=== PATIENT | female | born 1975 | race Caucasian/White ===

== ENCOUNTER 2020-05-19 19:59 | Emergency (ER) | payer OTHER, SELFPAY ==
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
[2020-05-19 20:03] VITALS: BP 136/84; PULSE 95; RESP 17; TEMP 36.6; O2SAT 100
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
[2020-05-19 22:00] VITALS: BP 124/67; PULSE 73; RESP 16; O2SAT 99
[2020-05-19] MEDS: IBUPROFEN 400 MG TABLET 800 MG PO (22:06)
[2020-05-19 22:21] VITALS: TEMP 36.6
== END 2020-05-19 22:15 | disposition home or self-care (01) ==
PROVIDERS: Emergency Provider Emergency Medicine; PCP Internal Medicine
DX: S96.911A Strain of unspecified muscle and tendon at ankle and foot level, right foot, initial encounter (principal); V43.52XA Car driver injured in collision with other type car in traffic accident, initial encounter
CPT/HCPCS: 70450; 71046; 72125; 73090; 73630; 99284; A9270

== ENCOUNTER 2020-08-22 11:46 | Emergency (ER) | payer OTHER, SELFPAY ==
[2020-08-22 11:55] VITALS: BP 117/55; PULSE 92; RESP 12; TEMP 36.9; O2SAT 100
--- NOTE | 2020-08-22 12:09 | ED.EAR ---
HPI - Ear Problem General Chief complaint: Ear Stated complaint: Ear infection Time Seen by Provider: 08/22/20 11:55 Source: patient and RN notes reviewed Mode of arrival: ambulatory Limitations: no limitations History of Present Illness HPI Narrative: Patient presents today complaining of left ear pain x1 week with nasal congestion. Denies decreased hearing, but does report some ringing and drumming. She has been taking Benadryl and Mucinex without much relief. Currently rates her pain 3/10. Denies rhinorrhea, sore throat, congestion, cough. States she gets similar symptoms every year and typically needs a Z-Odin. Complaint: ear pain Related Data Allergies Allergy/AdvReac Type Severity Reaction Status Date / Time No Known Allergies Allergy Verified 08/22/20 11:56 Review of Systems Review of Systems: Narrative: CONSTITUTIONAL: Denies body aches, fever, chills, or sweats. EYES: Denies visual changes, redness, or discharge. ENT: Denies rhinorrhea, sore throat. + Left ear pain, congestion CARDIOVASCULAR: Denies chest pain, palpitations, or edema. RESPIRATORY: Denies cough or dyspnea. GASTROINTESTINAL: Denies abdominal pain, nausea, vomiting, or diarrhea. GENITOURINARY: Denies dysuria or hematuria. SKIN: Denies rash, itching, or wounds. MUSCULOSKELETAL: Denies back pain, joint pain, or myalgia. NEUROLOGIC: Denies headache, numbness, tingling, or weakness. PSYCH: Denies depression or anxiety. PMFSH Past Medical History Medical History (Updated 08/22/20 @ 12:11 by Quiana Brice, [facility], ) ADD (attention deficit disorder) Family History Family History (Updated 07/11/18 @ 08:31 by DOCTOR UNKNOWN) Mother Patient's mother is in good health Father Patient's father is in good health Social History Social History (Updated 03/01/19 @ 09:11 by Na Chamorro, [facility]) Smoking status: Never smoker Alcohol intake: current Gender identity (if verbalized by the patient): Female Comments At time of signature, I have reviewed and agree with nursing past medical, surgical, social and family history unless otherwise noted. Please see nursing chart for further information. There is no relevant family history pertinent to the presenting complaint Exam Narrative: Exam Narrative: GENERAL: Well-appearing, well-nourished, and in no acute distress. HEAD: Normocephalic, atraumatic. EYES: EOMI. No redness or drainage. Conjunctivae normal. ENT: Mucous membranes pink and moist. Nares clear. No rhinorrhea. Right TM normal. Left TM with mild to moderate amount of clear yellow fluid. No erythema or injection. No purulent material. Throat normal. Uvula midline. NECK: Normal AROM. Supple. No lymphadenopathy. CHEST: No respiratory distress. Clear to auscultation. HEART: Regular rate and rhythm. No murmur appreciated. Normal peripheral pulses. EXTREMITIES: Normal range of motion. No edema. SKIN: Warm, dry, no rash. Capillary refill normal. Normal skin turgor. NEURO: No focal deficits. Alert and oriented x3. Gait steady. PSYCH: Normal affect. No signs of depression or anxiety. Course Vital Signs Vital signs: Vital Signs Temperature 98.4 F 08/22/20 11:55 Pulse Rate 92 08/22/20 11:55 Respiratory Rate 12 08/22/20 11:55 Blood Pressure 117/55 L 08/22/20 11:55 Pulse Oximetry 100 08/22/20 11:55 Temperature 98.4 F 08/22/20 11:55 Pulse Rate 92 08/22/20 11:55 Respiratory Rate 12 08/22/20 11:55 Blood Pressure 117/55 L 08/22/20 11:55 Pulse Oximetry 100 08/22/20 11:55 Reviewed Medical Decision Making Differential Diagnosis Differential Diagnosis: Otitis media, otitis externa, ruptured TM, serous otitis, eustachian tube dysfunction, URI, seasonal allergies Vital Signs Vital Signs: Vital Signs Temperature 98.4 F 08/22/20 11:55 Pulse Rate 92 08/22/20 11:55 Respiratory Rate 12 08/22/20 11:55 Blood Pressure 117/55 L 08/22/20 11:55 Pulse Oximetry 100 08/22/20 11:55
== END 2020-08-22 12:24 | disposition home or self-care (01) ==
PROVIDERS: Emergency Provider Nurse Practitioner; PCP Internal Medicine
DX: H65.02 Acute serous otitis media, left ear (principal)
CPT/HCPCS: 99213; G0463

== ENCOUNTER 2021-04-08 17:05 | Emergency (ER) | payer OTHER, SELFPAY ==
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
[2021-04-08 17:20] VITALS: BP 135/72; PULSE 71; RESP 16; TEMP 36.4; O2SAT 100
--- NOTE | 2021-04-08 17:27 | ECG_ITS ---
Measurements Intervals [place] Rate: 85 P: 50 SD: 153 QRS: 20 QRSD: 75 T: 10 QT: 374 QTc: 446 Interpretive Statements SINUS RHYTHM POSSIBLE LEFT ATRIAL ENLARGEMENT LOW QRS VOLTAGE IN PRECORDIAL LEADS CANNOT RULE OUT SEPTAL INFARCT, AGE INDETERMINATE BORDERLINE T WAVE ABNORMALITY- ANT/INF LEADS BASELINE ARTIFACT- I, III, AVL ABNORMAL ECG Electronically Signed On 04-09-2021 7:39:24 CUSTODIAL WORKER by Jordin Patel D.O.
[2021-04-08 17:39] LABS: Basophils Percent Auto 0.5 % (0.2-1.2); Eosinophils Percent Auto 0.5 % (0-4.4); Hematocrit 42.4 % (37.0-47.0); Hemoglobin 14.9 g/dL (12.0-15.0); Immature Granulocyte Absolute 0.02 K/mm3 (0.00-0.031); Immature Granulocyte Percent A 0.3 % (0-0.5); Mean Corpuscular HGB Conc 35.1 g/dl (32-36); Mean Corpuscular Hemoglobin 32.2 pg (26-34); Mean Corpuscular Volume 91.6 fl (80-100); Mean Platelet Volume 10.4 fl (7.4-10.4); Monocytes Absolute Auto 0.6 K/mm3 (0.1-0.6); Monocytes Percent Auto 7.3 % (2.6-8.5); Neutrophils Absolute Auto 4.4 K/mm3 (1.3-6.7); Neutrophils Percent Auto 57.4 % (45.5-73.1); Platelet Count Result 276 k/mm3 (150-375); Red Blood Count 4.63 M/mm3 (4.2-5.4); Red Cell Distribution Width 11.9 % (11.5-14.5); White Blood Count 7.7 K/mm3 (4.5-10.0)
[2021-04-08 17:48] LABS: Alanine Aminotransferase 17 U/L (4-35); Albumin Level 4.5 g/dL (3.5-5.1); Alkaline Phosphatase 60 U/L (38-126); Anion Gap 8 mmol/L (8-16); Aspartate Amino Transferase 24 U/L (14-36); Bilirubin,Total 0.3 mg/dL (0.2-1.3); Blood Urea Nitrogen 21 mg/dL (7-17); Calcium 9.4 mg/dL (8.4-10.2); Carbon Dioxide 30 mmol/L (22-30); Chloride 99 mmol/L (98-107); Estimated CRCL calculation 76 ml/min; Estimated Glomerular Filt Rate > 60; Glucose 102 mg/dL (65-110); Lipase 126 U/L (23-300); Potassium 3.7 mmol/L (3.4-5.0); Sodium 137 mmol/L (137-145)
[2021-04-08 17:51] LABS: INR 0.9; Prothrombin Time 12.1 Seconds (11.1-14.7)
[2021-04-08 17:52] LABS: Partial Thromboplastin Time 26.1 SECONDS (22.3-36.8)
[2021-04-08 18:00] LABS: Troponin I < 0.012 ng/mL (0.000-0.034)
[2021-04-08 19:49] VITALS: BP 134/93; PULSE 99; RESP 18; TEMP 36.9; O2SAT 99
--- NOTE | 2021-04-08 21:07 | PC.NURSE ---
Pt exits ED prior to seeing provider. No sign of any kind of distress.
== END 2021-04-09 00:59 | disposition left against medical advice (07) ==
PROVIDERS: Emergency Provider General Practice; PCP Internal Medicine
DX: M79.602 Pain in left arm (principal)
CPT/HCPCS: 36415; 71046; 80053; 83690; 84484; 85025; 85610; 85730; 93005; 99199

== ENCOUNTER 2022-09-16 08:37 | Outpatient (CLI) | payer OTHER, SELFPAY ==
[2022-09-16 18:44] LABS: Alanine Aminotransferase 17 U/L (6-35); Albumin Level 4.2 g/dL (3.5-5.1); Alkaline Phosphatase 61 U/L (38-126); Anion Gap 4 mmol/L (8-16); Aspartate Amino Transferase 31 U/L (14-36); Bilirubin,Total 0.5 mg/dL (0.2-1.3); Blood Urea Nitrogen 13 mg/dL (7-17); Calcium 9.4 mg/dL (8.4-10.2); Carbon Dioxide 32 mmol/L (22-30); Chloride 103 mmol/L (98-107); Cholesterol 184 mg/dL (0-200); Estimated Glomerular Filt Rate > 60; Glucose 98 mg/dL (65-110); HDL Direct 68 mg/dL; Potassium 4.6 mmol/L (3.4-5.0); Sodium 139 mmol/L (137-145); Triglycerides 58 mg/dL (<150)
[2022-09-16 18:56] LABS: LDL Cholesterol Direct 93 mg/dL
[2022-09-16 19:04] LABS: Vitamin D 25 Hydroxy 21.6 ng/mL
[2022-09-16 19:24] LABS: Basophils Absolute Auto 0.1 K/mm3 (0.0-0.1); Basophils Percent Auto 0.9 % (0.2-1.2); Eosinophils Percent Auto 0.7 % (0-4.4); Hematocrit 44.1 % (37.0-47.0); Hemoglobin 15.1 g/dL (12.0-15.0); Immature Granulocyte Absolute 0.01 K/mm3 (0.00-0.031); Immature Granulocyte Percent A 0.2 % (0-0.5); Lymphocytes Absolute Auto 2.11 K/mm3 (0.9-3.2); Lymphocytes Percent Auto 38.9 % (18.3-44.2); Mean Corpuscular HGB Conc 34.2 g/dl (32-36); Mean Corpuscular Hemoglobin 31.9 pg (26-34); Mean Platelet Volume 10.5 fl (7.4-10.4); Monocytes Absolute Auto 0.5 K/mm3 (0.1-0.6); Monocytes Percent Auto 8.3 % (2.6-8.5); Neutrophils Absolute Auto 2.8 K/mm3 (1.3-6.7); Platelet Count Result 332 k/mm3 (150-375); Red Blood Count 4.74 M/mm3 (4.2-5.4); Red Cell Distribution Width 11.9 % (11.5-14.5); White Blood Count 5.4 K/mm3 (4.5-10.0)
== END 2022-09-16 08:38 | disposition home or self-care (01) ==
LOC: ANHGOSHLAB 08:38
PROVIDERS: PCP Internal Medicine; Visit Provider Nurse Practitioner
DX: E55.9 Vitamin D deficiency, unspecified (principal); Z13.228 Encounter for screening for other metabolic disorders; Z13.220 Encounter for screening for lipoid disorders
CPT/HCPCS: 36415; 80053; 80061; 82306; 85025

== ENCOUNTER 2023-04-07 11:00 | Outpatient (CLI) | payer OTHER, SELFPAY ==
[2023-04-07 12:07] LABS: Appearance Urine Cloudy (Clear); Bacteria Urine None Seen /hpf; Bilirubin Urine Negative (Negative); Blood Urine 2+ (Negative); Color Urine Yellow (Yellow); Glucose Urine UA Negative (Negative); Ketones Urine Trace mg/dL (Negative); Leukocyte Esterase Ur 2+ LEU/UL (Negative); Nitrate Urine Negative (Negative); Non Pathogenic Casts 0-2; Protein Urine 1+ mg/dL (Negative); RBC Urine 51-100 /hpf (0-2); Specific Grav Ur 1.034 (1.001-1.035); Squamous Epithelial Cell Urine Occasional /hpf (Few); WBC Urine 51-100 /hpf
[2023-04-07 12:10] LABS: Add Urine Microscopic? YES
== END 2023-04-07 11:01 | disposition home or self-care (01) ==
LOC: ANHGOSHLAB 11:02
PROVIDERS: PCP Internal Medicine; Visit Provider Nurse Practitioner
DX: R30.0 Dysuria (principal)
CPT/HCPCS: 81001; 87077; 87086; 87186

== ENCOUNTER 2023-12-30 11:04 | Outpatient (CLI) | payer OTHER, SELFPAY ==
[2023-12-30 15:30] LABS: Basophils Percent Auto 0.5 % (0.2-1.2); Eosinophils Percent Auto 0.7 % (0-4.4); Hematocrit 46.3 % (37.0-47.0); Hemoglobin 15.4 g/dL (12.0-15.0); Immature Granulocyte Absolute 0.01 K/mm3 (0.00-0.031); Immature Granulocyte Percent A 0.2 % (0-0.5); Lymphocytes Absolute Auto 2.58 K/mm3 (0.9-3.2); Lymphocytes Percent Auto 44.3 % (18.3-44.2); Mean Corpuscular HGB Conc 33.3 g/dl (32-36); Mean Corpuscular Hemoglobin 31.2 pg (26-34); Mean Corpuscular Volume 93.7 fl (80-100); Mean Platelet Volume 10.8 fl (7.4-10.4); Monocytes Absolute Auto 0.5 K/mm3 (0.1-0.6); Monocytes Percent Auto 8.1 % (2.6-8.5); Neutrophils Absolute Auto 2.7 K/mm3 (1.3-6.7); Neutrophils Percent Auto 46.2 % (45.5-73.1); Platelet Count Result 323 k/mm3 (150-375); Red Blood Count 4.94 M/mm3 (4.2-5.4); Red Cell Distribution Width 11.9 % (11.5-14.5); White Blood Count 5.8 K/mm3 (4.5-10.0)
[2023-12-30 15:59] LABS: Alanine Aminotransferase 16 U/L (6-35); Albumin Level 4.3 g/dL (3.5-5.1); Alkaline Phosphatase 61 U/L (38-126); Anion Gap 9 mmol/L (4-12); Aspartate Amino Transferase 85 U/L (14-36); Bilirubin,Total 0.6 mg/dL (0.2-1.3); Blood Urea Nitrogen 13 mg/dL (7-17); Calcium 9.4 mg/dL (8.4-10.2); Carbon Dioxide 29 mmol/L (22-30); Chloride 100 mmol/L (98-107); Cholesterol 190 mg/dL (0-200); Estimated Glomerular Filt Rate > 60; Glucose 79 mg/dL (65-110); HDL Direct 65 mg/dL; Potassium 4.2 mmol/L (3.4-5.0); Sodium 138 mmol/L (137-145); Triglycerides 55 mg/dL (<150)
[2023-12-30 16:07] LABS: Vitamin D 25 Hydroxy 36.6 ng/mL
[2023-12-30 16:10] LABS: LDL Cholesterol Direct 88 mg/dL
[2024-01-01 16:03] LABS: Amphetamines POSITIVE ng/mL (<500); Barbiturates NEGATIVE ng/mL (<300); Benzodiazepines NEGATIVE ng/mL (<100); Cocaine Metabolite NEGATIVE ng/mL (<150); Marijuana Metabolite NEGATIVE ng/mL (<20); Methadone Metabolite NEGATIVE ng/mL (<100); Opiates NEGATIVE ng/mL (<100); Oxidant NEGATIVE mcg/mL (<200); PCP NEGATIVE ng/mL (<25); pH 7.4 (4.5-9.0)
== END 2023-12-30 11:05 | disposition home or self-care (01) ==
PROVIDERS: PCP Internal Medicine; Visit Provider Nurse Practitioner
DX: E55.9 Vitamin D deficiency, unspecified (principal); Z13.220 Encounter for screening for lipoid disorders; Z13.228 Encounter for screening for other metabolic disorders; Z79.899 Other long term (current) drug therapy
CPT/HCPCS: 36415; 80053; 80061; 80307; 82306; 85025

== ENCOUNTER 2024-12-07 09:13 | Outpatient (CLI) | payer OTHER, SELFPAY ==
--- OUTSIDE RECORDS SUMMARY | 2023-08-12 04:00 | XMS_ITS ---
Author Organization [facility] Address [address] [place], [place] [phone] Care Team Providers Care Information Engineer Name Role Phone Migration, Provider Unavailable Unavailable REASON FOR VISIT TelEnc Encounters Encounter Location Date Provider Diagnosis [address] [address] 08/12/2023 Provider Migration Plan Of Treatment No Information Progress Notes * GENNY HUMPHREYSOB:1975 (49 yo F)Acc No.[id number]:08/12/2023 Patient: CARLIE DURAN :1975 A ge:48 Y S ex:Female Address:[address] , [facility] [address] Subjective: * Chief Complaints: * T elEnc * * Date:
--- OUTSIDE RECORDS SUMMARY | 2024-07-14 04:00 | XMS_ITS ---
Author Organization [facility] Address [address] [facility] [place] [phone] Care Team Providers Care Granulator Operator Name Role Phone Migration, Provider Unavailable Unavailable REASON FOR VISIT EMR-Chinmay Encounters Encounter Location Date Provider Diagnosis [facility] [address] [facility] [place] [phone] 07/14/2024 Prov ider Migration Plan Of Treatment No Information Progress Notes * GENNY HUMPHREYSOB:1975 (49 yo F)Acc No.[id number]:07/14/2024 Patient: CARLIE DURAN :1975 A ge:49 Y S ex:Female Address:[address] , [place], [address] Subjective: * Chief Complaints: * E MR-Chinmay * * Date:
--- OUTSIDE RECORDS SUMMARY | 2024-07-15 04:00 | XMS_ITS ---
Author Organization [facility] Address [facility] [place] [id number] Care Team Providers Care Acrobatic Dancer Name Role Phone Migration, Provider Unavailable Unavailable REASON FOR VISIT EMR-[facility] [place] [facility] Medications Medication SIG (Take, Route, Frequency, Duration) Notes Start Date End Date Status FLUTICASONE PROPIONATE 50 MCG/ACTUATION NASAL SPRAY,SUSPENSION *Reorder from [employer] for eRx and Interaction Alerts* 04/26/2023 Active [...] Encounters Encounter Location Date Provider Diagnosis [facility] [address] [facility] [place] Fernández [id number] 07/15/2024 Prov ider Migration Plan Of Treatment No Information Progress Notes * GENNY HUMPHREYSOB:1975 (49 yo F)Acc No.[id number]:07/15/2024 Patient: CARLIE DURAN :1975 A ge:49 Y S ex:Female Address:[facility] [address] , [place], [address] Subjective: * Chief Complaints: * E -Chinmay * Medical History: Problems: Abnormal uterine bleeding High risk human papillomavirus detected Menometrorrhagia * Animal Maintenance Supervisor History: M igrated GynHistory M igrated GYNHistory:: Age at Menarche: 16 Modified Date:04/15/2023,Current Control Method: Partner Vasectomy Modified Date:04/15/2023,Date of Last Pap Smear: 08/15/2020 Modified Date:04/15/2023,Duration of Flow (days): 5 Modified Date:04/15/2023,Frequency of Cycle (Q days): 28 Modified Date:04/15/2023 . * Surgical History: Augmentation of bilateral breasts (630079338) Dilation and curettage Extraction of wisdom tooth (15570755) Hysteroscopy w/ polypectomy * Family History: M [...] SPRAY,SUSPENSION , Notes to Pharmacist: *Reorder from [employer] for eRx and Interaction Alerts*Taking Amphetamine-Dextroamphetamine 30 [...] SPRAY,SUSPENSION , Notes to Pharmacist: *Reorder from [facility] for eRx and Interaction Alerts* * * Date:
--- OUTSIDE RECORDS SUMMARY | 2024-12-07 09:17 | XMS_ITS | Patient Health Record ---
Author Organization [facility] Address [address] [facility] [place] [id number] Care Team Providers Care Hypoid Gear Tester Name Role Phone Migration, Provider Unavailable Unavailable Reason For Referral No Information Medications Medication SIG (Take, Route, Frequency, Duration) Notes Start Date End Date Status metroNIDAZOLE 500 MG Tablet Oral 04/26/2023 Active Macrobid 100 MG Capsule Oral 04/26/2023 Active Fluconazole 150 MG Tablet Oral 04/26/2023 Active Ciprofloxacin HCl 500 MG Tablet Oral 04/26/2023 Active Bactrim DS 800-160 MG Tablet Oral 04/26/2023 Active Azithromycin 250 MG Tablet Oral 04/26/2023 Active Amphetamine-Dextroamph etamine 30 MG Tablet Oral 04/26/2023 Active FLUTICASONE PROPIONATE 50 MCG/ACTUATION NASAL SPRAY,SUSPENSION *Reorder from [employer] for eRx and Interaction Alerts* 04/26/2023 Active Flonase Allergy Relief 50 MCG/ACT Suspension Nasal 04/26/2023 Active Zithromax Z-Odin 250 MG Tablet Oral 04/26/2023 Active Sulfamethoxazole-Trime thoprim 800-160 MG Tablet Oral 04/26/2023 Active Nitrofurantoin Monohyd Macro 100 MG Capsule Oral 04/26/2023 Active Social History Social History Additional Details Category Social Info Options Details Migrated Social History Migrated Social History Alcohol Intake: Occasional 04/15/2023,Tobacco Years: Never smoker 04/15/2023 Problems Problem Type SNOMED Code ICD Code Onset Dates Problem Status W/U Status Risk Notes Problem Acute sinusitis (47293604) Acute sinusitis, unspecified (J01.90) 04/15/20 23 Active confirmed Problem Urinary tract infectious disease (disorder) (39528920) Urinary tract infection, site not specified (N39.0) 04/26/19 24 Active confirmed Problem Acute vaginitis (13761271) Acute vaginitis (N76.0) 04/19/19 24 Active confirmed Problem Noninflammatory disorder of the vagina (51172096) Other specified noninflammatory disorders of vagina (N89.8) 04/15/20 23 Active confirmed Problem Unspecified symptoms and signs involving the genitourinary system (R39.9) 04/21/19 24 Active confirmed Encounters Encounter Location Date Provider Diagnosis [facility] [address] [address] [place], [place] [phone] 07/14/2024 Prov ider Migration [facility] [place] [address] [place], [place] [id number] 07/15/2024 Prov ider Migration Plan Of Treatment No Information Medical (General) History Surgical History Surgery Date(Month/Year) Augmentation of bilateral breasts (04025 7762) Dilation and curettage Extraction of wisdom tooth (93530502) Hysteroscopy w/ polypectomy
--- OUTSIDE RECORDS SUMMARY | 2024-12-07 09:17 | XMS_ITS | Encounter Summary ---
Author Organization [facility] Address [address] [place] [address] Phone Care Team Providers Care Manager Mental Health Name Role Phone Rey Stearns DO Primary Care Provider [phone] Rey Stearns DO Unavailable [phone] Encounter Details Date Type Department Care Team (Latest Contact Info) Description 04/08/2021 Orders Only [facility] Scanning, Provider Social History Tobacco Use Types Packs/Day Years Used Date Smoking Tobacco: Never Assessed Comments Unknown Sex and Gender Information Value Date Recorded Sex Assigned at Not on file Legal Sex Female 9:04 AM ART MODEL Gender Identity Not on file Sexual Orientation Not on file documented as of this encounter Plan of Treatment Not on file documented as of this encounter Procedures Procedure Name Priority Date/Time Associated Diagnosis Comments SCAN - RADIOLOGY/IMAGING 04/08/2021 SCAN - LABS 04/08/2021 CARDIOLOGY DOCUMENT SCAN 04/08/2021 documented in this encounter Results * SCAN - LABS (04/08/2021) us Provider Scanning Final Result * SCAN - RADIOLOGY/IMAGING (04/08/2021) Anatomical Region Laterality Modality Other us Provider Scanning Final Result * SCAN - CARDIOLOGY (04/08/2021) Anatomical Region Laterality Modality Other us Provider Scanning [facility] CARDIAC SERVICES PROCEDURES Edited Result - Final documented in this encounter Visit Diagnoses Not on filedocumented in this encounter Additional Health Concerns Infection Onset Date Last Indicated Resolved Time COVID: Suspected 05/06/2021 05/06/2021 05/06/2021 11:52 AM ART MODEL COVID19 05/06/2021 05/06/2021 05/16/2021 3:05 AM ART MODEL COVID: Recovered Comment:Added based on recent COVID infection. 05/16/2021 06/11/2021 09/13/2021 3:05 AM C DT documented as of this encounter Care Teams Manager Mental Health Relationship Specialty Start Date End Date Rey Stearns DO PCP - General Internal Medicine 01/16/19 Rey Stearns DO Internal Medicine 01/16/19 documented as of this encounter
--- OUTSIDE RECORDS SUMMARY | 2024-12-07 09:17 | XMS_ITS | Clinical Summary ---
Author Organization [facility] Address [address] [place] [address] Care Team Providers Care Philanthropy Officer Name Role Phone Rey Stearns DO Primary Care Provider [phone] Rey Stearns DO Unavailable [phone] Allergies No known active allergies Medications dextroamphetam ine-amphetamin e (ADDERALL) 30 mg tablet Take 1 tablet (30 mg total) by mouth daily 4 Active Wegovy 2.4 mg/0.75 mL auto-injector INJECT 2.4 MG (0.75 ML) SUBCUTANEOUSLY WEEKLY 4 Active Active Problems Problem Noted Date Diagnosed Date Hypoglycemia 12/30/2021 Assessment & Plan (12/30/2021 3:58 PM CDT): Etiology unclear and uncertain if reactive hypoglycemia (postprandial hypoglycemia) Plan: 1) Provided glucometer to establish true hypoglycemia (low BG < 55 mg/dl with or without symptoms) 2) 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 (low BG + neurogenic-neuroglycopenic symptoms + symptom relief with BG elevation) Other possible confirmatory and diagnostic tests include: BMP (confirm glucose level <54 mg/dl) Insulin level C-peptide Pro-insulin Beta-hydroxybutyrate Oral hypoglycemic-sulfonylurea screen Insulin antibodies TSH Immunizations Immunization Administration Dates Next Due Influenza, Quadrivalent, Spl it, Preservative Free, Intramuscular 02/23/2022 Family History Medical History Relation Name Comments Diabetes Maternal Grandfather Diabetes Mother's Sister Relation Name Status Comments Maternal Grandfather Mother's Sister Social History Tobacco Use Types Packs/Day Years Used Date Smoking Tobacco: Never Smokeless Tobacco: Never Tobacco Cessation:Counseling Given: Not Answered Comments Unknown Sex and Gender Information Value Date Recorded Sex Assigned at Not on file Legal Sex Female 9:04 AM MANDARIN TUTOR Gender Identity Not on file Sexual Orientation Not on file Obstetrics History Last Filed Vital Signs Vital Sign Reading Time Taken Comments Blood Pressure 132/93 12/30/2021 1:14 PM CDT Pulse 87 12/30/2021 1:14 PM CDT Temperature 37 C (98.6 F) 12/30/2021 1:14 PM CDT Respiratory Rate 16 05/06/2021 11:36 AM MANDARIN TUTOR Oxygen Saturation 99% 05/06/2021 11:36 AM MANDARIN TUTOR Inhaled Oxygen Concentration - - Weight 73.9 kg (163 lb) 01/16/2024 12:44 PM CDT Height 160 cm (5' 3) 01/16/2024 12:44 PM CDT Body Mass Index 28.87 01/16/2024 12:44 PM CDT Plan of Treatment Health Maintenance Due Date Last Done Comments Cervical Cancer Screening 1975 Colon Cancer Screening-Colonoscopy 1975 Depression Screening 1975 Hepatitis C Screening 1975 Regular Well Visit/Exam 18-64 1994 Covid-19 Vaccine (3 - 2023-2 5 season) 2023 10/30/2020, 10/02/2020 Influenza Vaccine (#1) 2024 , 04/27/2018 Breast Cancer Screening-Mammogram 03/27/2025 03/27/2024 DTaP/Tdap/Td Vaccine (2 - Td or Tdap) 10/04/2025 10/05/2015 Hepatitis B Screening Completed 11/09/2015 , 10/05/2015 Pneumococcal vaccine <65 Aged Out No longer eligible based on patient's age to complete this topic Procedures Procedure Name Priority Date/Time Associated Diagnosis Comments DIAGNOSTIC MAMMOGRAM BILATERAL W LEE W IMPLANTS Schedule Routine, Read Routine (OP Routine) 03/27/2024 9:24 AM MANDARIN TUTOR Encounter for other screening for malignant neoplasm of breast Mastodynia from Last 3 Months or Most Recently Relevant to Health Maintenance Results * Diagnostic Mammogram Bilateral w Lee w Implants (03/27/2024 9:24 AM MANDARIN TUTOR) Anatomical Region Laterality Modality Breast Bilateral Mammography 03/27/2024 9:56 AM MANDARIN TUTOR Impressions 03/27/2024 2:46 PM MANDARIN TUTOR No mammographic or sonographic evidence of malignancy in EITHER breast. OVERALL FINAL ASSESSMENT: BI-RADS Category 1: Negative. RECOMMENDATION: 1. Annual screening mammography is recommended. 2. Clinical follow-up is recommended. Dr. Burton discussed the above findings and recommendations with the patient, who expressed her understanding of the management plan. Dictated by: Derrick Burton MD The radiology attending physician has personally reviewed this study, and had reviewed and/or edited this written report and agrees with it. Electronically signed by: Alessandra Sigala M.D. Narrative 03/27/2024 2:46 PM MANDARIN TUTOR EXAMINATION: BILATERAL DIGITAL DIAGNOSTIC MAMMOGRAM INCLUDING CAD AND BILATERAL DIGITAL BREAST TOMOSYNTHESIS; BILATERAL AXILLARY SONOGRAM HISTORY: 48-year-old woman with history of bilateral breast augmentation with implants (1999) undergoing evaluation for cyclical focal axillary pain that radiates into the lateral breasts. COMPARISON: None available TECHNIQUE: Full field digital mammographic views of BOTH breasts were performed, including computer aided detection (CAD) and BILATERAL digital breast tomosynthesis (DBT). Directed ultrasound evaluation of BOTH axillae was performed.. BREAST PARENCHYMAL COMPOSITION: The breasts are heterogeneously dense, which may obscure small masses. MAMMOGRAM FINDINGS: Square skin marker is noted in the LEFT axilla overlying the area of focal pain. No definite mammographic abnormality identified deep to the skin marker. Bilateral subpectoral saline implants are in place. No suspicious mass, calcification, or architectural distortion identified in EITHER breast. SONOGRAM FINDINGS: Targeted sonographic evaluation of the axillae in the areas of focal pain did not demonstrate any sonographic abnormality. Procedure Note Alessandra Sigala MD - 03/27/2024 EXAMINATION: BILATERAL DIGITAL DIAGNOSTIC MAMMOGRAM INCLUDING CAD AND BILATERAL DIGITAL BREAST TOMOSYNTHESIS; BILATERAL AXILLARY SONOGRAM HISTORY: 48-year-old woman with history of bilateral breast augmentation with implants (1999) undergoing evaluation for cyclical focal axillary pain that radiates into the lateral breasts. COMPARISON: None available TECHNIQUE: Full field digital mammographic views of BOTH breasts were performed, including computer aided detection (CAD) and BILATERAL digital breast tomosynthesis (DBT). Directed ultrasound evaluation of BOTH axillae was performed.. BREAST PARENCHYMAL COMPOSITION: The breasts are heterogeneously dense, which may obscure small masses. MAMMOGRAM FINDINGS: Square skin marker is noted in the LEFT axilla overlying the area of focal pain. No definite mammographic abnormality identified deep to the skin marker. Bilateral subpectoral saline implants are in place. No suspicious mass, calcification, or architectural distortion identified in EITHER breast. SONOGRAM FINDINGS: Targeted sonographic evaluation of the axillae in the areas of focal pain did not demonstrate any sonographic abnormality. IMPRESSION: No mammographic or sonographic evidence of malignancy in EITHER breast. OVERALL FINAL ASSESSMENT: BI-RADS Category 1: Negative. RECOMMENDATION: 1. Annual screening mammography is recommended. 2. Clinical follow-up is recommended. Dr. Burton discussed the above findings and recommendations with the patient, who expressed her understanding of the management plan. Dictated by: Derrick Burton MD The radiology attending physician has personally reviewed this study, and had reviewed and/or edited this written report and agrees with it. Electronically signed by: Alessandra Sigala M.D. Zehra Buckley NP IMG MAMMO PROCEDURES Final R esult from Last 3 Months or Most Recently Relevant to Health Maintenance Insurance [employer] [facility] H[employer]/PPO Address: [facility] [id number] [place] [address] [employer] [facility] [employer]O Address: [address] [place], [place] [id number] [employer] [facility] [employer]O Address: [place] [address] Care Teams Philanthropy Officer Relationship Specialty Start Date End Date Rey Stearns DO PCP - General Internal Medicine 01/16/19 Rey Stearns DO Internal Medicine 01/16/19
[2024-12-07 13:27] LABS: Hematocrit 45.9 % (37.0-47.0); Hemoglobin 15.5 g/dL (12.0-15.0); Immature Granulocyte Percent A 0.4 % (0-0.5); Lymphocytes Absolute Auto 2.51 K/mm3 (0.9-3.2); Mean Corpuscular HGB Conc 33.8 g/dl (32-36); Mean Corpuscular Hemoglobin 31.5 pg (26-34); Mean Corpuscular Volume 93.3 fl (80-100); Nucleated Red Blood Cells Absolute Auto 0.000 K/mm3 (0.0-0.012); Nucleated Red Blood Cells Perc 0.0 % (0.0-0.2); Platelet Count Result 298 k/mm3 (150-375); Red Blood Count 4.92 M/mm3 (4.2-5.4); White Blood Count 5.3 K/mm3 (4.5-10.0)
[2024-12-07 13:33] LABS: Alanine Aminotransferase 12 U/L (6-35); Albumin Level 4.3 g/dL (3.5-5.1); Alkaline Phosphatase 51 U/L (38-126); Anion Gap 8 mmol/L (4-12); Aspartate Amino Transferase 35 U/L (14-36); Bilirubin,Total 0.5 mg/dL (0.2-1.3); Blood Urea Nitrogen 16 mg/dL (7-17); Calcium 9.2 mg/dL (8.4-10.2); Carbon Dioxide 27 mmol/L (22-30); Chloride 102 mmol/L (98-107); Cholesterol 200 mg/dL (0-200); Estimated Glomerular Filt Rate > 60; Glucose 61 mg/dL (65-110); HDL Direct 74 mg/dL; Potassium 4.5 mmol/L (3.4-5.0); Sodium 137 mmol/L (137-145); Total Protein 7.5 g/dL (6.3-8.2); Triglycerides 59 mg/dL (<150)
[2024-12-10 18:08] LABS: Amphetamine Conf, MS, UR >3000 ng/mL (Cutoff=500); Cocaine (Metab.), Urine Negative ng/mL (Cutoff=300)
== END 2024-12-07 09:14 | disposition home or self-care (01) ==
LOC: ANHGOSHLAB 09:14
PROVIDERS: PCP Internal Medicine; Visit Provider Nurse Practitioner
DX: F98.8 Other specified behavioral and emotional disorders with onset usually occurring in childhood and adolescence (principal); Z79.899 Other long term (current) drug therapy; Z13.220 Encounter for screening for lipoid disorders; E55.9 Vitamin D deficiency, unspecified; Z13.228 Encounter for screening for other metabolic disorders
CPT/HCPCS: 36415; 80053; 80061; 80307; 82306; 85025

== ENCOUNTER 2024-12-19 13:55 | Outpatient (CLI) | payer OTHER, SELFPAY ==
--- OUTSIDE RECORDS SUMMARY | 2023-07-15 04:00 | XMS_ITS ---
Author Organization [facility] Address [address] [place], [place] [id number] Care Team Providers Care Power Generating Plant Operator Name Role Phone Migration, Provider Unavailable Unavailable REASON FOR VISIT TelEnc Encounters Encounter Location Date Provider Diagnosis [address] [address] 07/15/2023 Provider Migration Plan Of Treatment No Information Progress Notes * GENNY HUMPHREYSOB:1975 (49 yo F)Acc No.[id number]:07/15/2023 Patient: CARLIE DURAN :1975 A ge:48 Y S ex:Female Address:[address] , [facility] [address] Subjective: * Chief Complaints: * T elEnc * * Date:
--- OUTSIDE RECORDS SUMMARY | 2023-07-29 04:00 | XMS_ITS ---
Author Organization [facility] Address [address] [place], [place] [phone] Care Team Providers Care Fiction Writer Name Role Phone Migration, Provider Unavailable Unavailable REASON FOR VISIT TelEnc Encounters Encounter Location Date Provider Diagnosis [address] [address] 07/29/2023 Provider Migration Plan Of Treatment No Information Progress Notes * GENNY HUMPHREYSOB:1975 (49 yo F)Acc No.[id number]:07/29/2023 Patient: CARLIE DURAN :1975 A ge:48 Y S ex:Female Address:[address] , [facility] [address] Subjective: * Chief Complaints: * T elEnc * * Date:
--- OUTSIDE RECORDS SUMMARY | 2023-08-12 04:00 | XMS_ITS ---
Author Organization [facility] Address [address] [place], [place] [phone] Care Team Providers Care Sorter Operator Name Role Phone Migration, Provider Unavailable Unavailable REASON FOR VISIT TelEnc Encounters Encounter Location Date Provider Diagnosis [address] [address] 08/12/2023 Provider Migration Plan Of Treatment No Information Progress Notes * GENNY HUMPHREYSOB:1975 (49 yo F)Acc No.[id number]:08/12/2023 Patient: CARLIE DURAN :1975 A ge:48 Y S ex:Female Address:[address] , [facility] [address] Subjective: * Chief Complaints: * T elEnc * * Date:
--- OUTSIDE RECORDS SUMMARY | 2024-07-14 04:00 | XMS_ITS ---
Author Organization [facility] Address [address] [facility] [place] [phone] Care Team Providers Care Vendor Relationship Manager Name Role Phone Migration, Provider Unavailable Unavailable REASON FOR VISIT EMR-Chinmay Encounters Encounter Location Date Provider Diagnosis [place] [address] [facility] [place] [id number] 07/14/2024 Prov ider Migration Plan Of Treatment No Information Progress Notes * GENNY HUMPHREYSOB:1975 (49 yo F)Acc No.[id number]:07/14/2024 Patient: CARLIE DURAN :1975 A ge:49 Y S ex:Female Address:[address] , [place], [address] Subjective: * Chief Complaints: * E MR-Chinmay * * Date:
--- OUTSIDE RECORDS SUMMARY | 2024-07-15 04:00 | XMS_ITS ---
Author Organization [facility] Address [facility] [place] [id number] Care Team Providers Care Siderographist Name Role Phone Migration, Provider Unavailable Unavailable REASON FOR VISIT EMR-[facility] [place] Medications Medication SIG (Take, Route, Frequency, Duration) Notes Start Date End Date Status FLUTICASONE PROPIONATE 50 MCG/ACTUATION NASAL SPRAY,SUSPENSION *Reorder from [facility] for eRx and Interaction Alerts* 04/26/2023 Active [...] Encounters Encounter Location Date Provider Diagnosis [facility] [address] [place] Fernández [id number] 07/15/2024 Prov ider Migration Plan Of Treatment No Information Progress Notes * GENNY HUMPHREYSOB:1975 (49 yo F)Acc No.[id number]:07/15/2024 Patient: CARLIE DURAN :1975 A ge:49 Y S ex:Female Address:[facility] [address] , [place], [address] Subjective: * Chief Complaints: * E -Chinmay * Medical History: Problems: Abnormal uterine bleeding High risk human papillomavirus detected Menometrorrhagia * Real Time Operator History: M igrated GynHistory M igrated GYNHistory:: Age at Menarche: 16 Modified Date:04/15/2023,Current Control Method: Partner Vasectomy Modified Date:04/15/2023,Date of Last Pap Smear: 08/15/2020 Modified Date:04/15/2023,Duration of Flow (days): 5 Modified Date:04/15/2023,Frequency of Cycle (Q days): 28 Modified Date:04/15/2023 . * Surgical History: Augmentation of bilateral breasts ([id number]) Dilation and curettage Extraction of wisdom tooth (82991496) Hysteroscopy w/ polypectomy * Family History: M [...] SPRAY,SUSPENSION , Notes to Pharmacist: *Reorder from [facility] for eRx and Interaction Alerts*Taking Amphetamine-Dextroamphetamine 30 [...] SPRAY,SUSPENSION , Notes to Pharmacist: *[facility]Rx and Interaction Alerts* * * Date:
--- OUTSIDE RECORDS SUMMARY | 2024-12-19 15:15 | XMS_ITS | Encounter Summary ---
Author Organization [facility] Address [address] [place] [address] Phone Care Team Providers Care Fishing Manager Name Role Phone Rey Stearns DO Primary Care Provider [phone] Rey Stearns DO Unavailable [phone] Encounter Details Date Type Department Care Team (Latest Contact Info) Description 04/08/2021 Orders Only [facility] Scanning, Provider Social History Tobacco Use Types Packs/Day Years Used Date Smoking Tobacco: Never Assessed Comments Unknown Sex and Gender Information Value Date Recorded Sex Assigned at Not on file Legal Sex Female 9:04 AM WINE BLENDER Gender Identity Not on file Sexual Orientation [...] COVID: Suspected 05/06/2021 05/06/2021 05/06/2021 11:52 AM WINE BLENDER COVID19 05/06/2021 05/06/2021 05/16/2021 3:05 AM WINE BLENDER COVID: Recovered Comment:Added based on recent COVID infection. 05/16/2021 06/11/2021 09/13/2021 3:05 AM C DT documented as of this encounter Care Teams Fishing Manager Relationship Specialty Start Date End Date Rey Stearns DO PCP - General Internal Medicine 01/16/19 Rey Stearns DO Internal Medicine 01/16/19 documented as of this encounter
--- OUTSIDE RECORDS SUMMARY | 2024-12-19 15:15 | XMS_ITS | Clinical Summary ---
Author Organization [facility] Address [address] [place] [address] Care Team Providers Care Financial Assistance Specialist Name Role Phone Rey Stearns DO Primary Care Provider [phone] Rey Stearns DO Unavailable [phone] Allergies No known active allergies Medications dextroamphetam [...] on file Legal Sex Female 9:04 AM HYPERTRICHOLOGIST Gender Identity Not on file Sexual Orientation Not on file Obstetrics History Last Filed Vital Signs Vital Sign Reading Time Taken Comments Blood Pressure 132/93 12/30/2021 1:14 PM CDT Pulse 87 12/30/2021 1:14 PM CDT Temperature 37 C (98.6 F) 12/30/2021 1:14 PM CDT Respiratory Rate 16 05/06/2021 11:36 AM HYPERTRICHOLOGIST Oxygen Saturation 99% 05/06/2021 11:36 AM HYPERTRICHOLOGIST Inhaled Oxygen Concentration - - Weight 73.9 [...] Visit/Exam 18-64 1994 Covid-19 Vaccine (3 - 2024-2 6 season) 2024 10/30/2020, 10/02/2020 Influenza Vaccine (#1) 2024 , [...] Read Routine (OP Routine) 03/27/2024 9:24 AM HYPERTRICHOLOGIST Encounter for other screening for malignant neoplasm of breast Mastodynia from Last 3 Months or Most Recently Relevant to Health Maintenance Results * Diagnostic Mammogram Bilateral w Lee w Implants (03/27/2024 9:24 AM HYPERTRICHOLOGIST) Anatomical Region Laterality Modality Breast Bilateral Mammography 03/27/2024 9:56 AM HYPERTRICHOLOGIST Impressions 03/27/2024 2:46 PM HYPERTRICHOLOGIST No mammographic or sonographic evidence of malignancy [...] Alessandra Sigala M.D. Narrative 03/27/2024 2:46 PM HYPERTRICHOLOGIST EXAMINATION: BILATERAL DIGITAL DIAGNOSTIC MAMMOGRAM INCLUDING CAD [...] Most Recently Relevant to Health Maintenance Insurance [employer] HMO/PPO Address: [facility] [address] [place] [address] [employer] HMO/PPO Address: [address] [place], [place] [id number] [employer] HMO/PPO Address: [place] [address] Care Teams Financial Assistance Specialist Relationship Specialty Start Date End Date Rey Stearns DO PCP - General Internal Medicine 01/16/19 Rey Stearns DO Internal Medicine 01/16/19
--- OUTSIDE RECORDS SUMMARY | 2024-12-19 15:15 | XMS_ITS | Patient Health Record ---
Author Organization [facility] Address [address] [facility] [place] [id number] Care Team Providers Care Internet Cafe Manager Name Role Phone Migration, Provider Unavailable [...] PROPIONATE 50 MCG/ACTUATION NASAL SPRAY,SUSPENSION *Reorder from [employer] for eRx and Interaction Alerts* 04/26/2023 Active [...] W/U Status Risk Notes Problem Acute sinusitis (78212345) Acute sinusitis, unspecified (J01.90) 04/15/20 23 Active confirmed Problem Urinary tract infectious disease (disorder) (20513689) Urinary tract infection, site not specified (N39.0) 04/26/19 24 Active confirmed Problem Acute vaginitis (84744719) Acute vaginitis (N76.0) 04/19/19 24 Active confirmed Problem Noninflammatory disorder of the vagina (51217668) Other specified noninflammatory disorders of vagina (N89.8) 04/15/20 23 Active confirmed Problem Unspecified symptoms and signs involving the genitourinary system (R39.9) 04/21/19 24 Active confirmed Encounters Encounter Location Date Provider Diagnosis [facility] [address] [place], [place] [id number] 07/14/2024 Prov ider Migration [facility] [address] [place], [place] [id number] 07/15/2024 Prov ider Migration Plan Of Treatment No Information Medical (General) History Surgical History Surgery Date(Month/Year) Augmentation of bilateral breasts (11003 4956) Dilation and curettage Extraction of wisdom tooth (45690748) Hysteroscopy w/ polypectomy
[2024-12-19 19:46] LABS: Add Urine Microscopic? YES; Appearance Urine Cloudy (Clear); Glucose Urine UA Negative (Negative); Leukocyte Esterase Ur Negative LEU/UL (Negative); Nitrate Urine Negative (Negative); Non Pathogenic Casts 0-2; Specific Grav Ur 1.016 (1.001-1.035)
== END 2024-12-19 13:56 | disposition home or self-care (01) ==
LOC: ANHGOSHLAB 13:56
PROVIDERS: PCP Internal Medicine; Visit Provider Nurse Practitioner
DX: R30.0 Dysuria (principal)
CPT/HCPCS: 81001

== ENCOUNTER 2025-01-02 15:39 | Outpatient (CLI) | payer OTHER, SELFPAY ==
--- OUTSIDE RECORDS SUMMARY | 2023-07-15 04:00 | XMS_ITS ---
Author Organization [facility] Address [address] [place], [place] [phone] Care Team Providers Care Screener Perfumer Name Role Phone Migration, Provider Unavailable Unavailable REASON FOR VISIT TelEnc Encounters Encounter Location Date Provider Diagnosis [address] [address] 07/15/2023 Provider Migration Plan Of Treatment No Information Progress Notes * GENNY HUMPHREYSOB:1975 (49 yo F)Acc No.[id number]:07/15/2023 Patient: CARLIE DURAN :1975 A ge:48 Y S ex:Female Address:[address] , [facility] [address] Subjective: * Chief Complaints: * T elEnc * * Date:
--- OUTSIDE RECORDS SUMMARY | 2023-07-29 04:00 | XMS_ITS ---
Author Organization [facility] Address [address] [place], [place] [phone] Care Team Providers Care Rn Immunology Name Role Phone Migration, Provider Unavailable Unavailable REASON FOR VISIT TelEnc Encounters Encounter Location Date Provider Diagnosis [address] [address] 07/29/2023 Provider Migration Plan Of Treatment No Information Progress Notes * GENNY HUMPHREYSOB:1975 (49 yo F)Acc No.[id number]:07/29/2023 Patient: CARLIE DURAN :1975 A ge:48 Y S ex:Female Address:[address] , [facility] [address] Subjective: * Chief Complaints: * T elEnc * * Date:
--- OUTSIDE RECORDS SUMMARY | 2023-08-12 04:00 | XMS_ITS ---
Author Organization [facility] Address [address] [place], [place] [phone] Care Team Providers Care Care Rep Name Role Phone Migration, Provider Unavailable Unavailable REASON FOR VISIT TelEnc Encounters Encounter Location Date Provider Diagnosis [address] [address] 08/12/2023 Provider Migration Plan Of Treatment No Information Progress Notes * GENNY HUMPHREYSOB:1975 (49 yo F)Acc No.[id number]:08/12/2023 Patient: CARLIE DURAN :1975 A ge:48 Y S ex:Female Address:[address] , [place] [address] Subjective: * Chief Complaints: * T elEnc * * Date:
--- OUTSIDE RECORDS SUMMARY | 2024-07-14 04:00 | XMS_ITS ---
Author Organization [facility] Address [address] [facility] [place] [phone] Care Team Providers Care Microelectronics Assembler Name Role Phone Migration, Provider Unavailable Unavailable REASON FOR VISIT EMR-Ch[facility]may Encounters Encounter Location Date Provider Diagnosis [facility] [address] [facility] [place] [phone] 07/14/2024 Prov ider Migration Plan Of Treatment No Information Progress Notes * GENNY HUMPHREYSOB:1975 (49 yo F)Acc No.[id number]:07/14/2024 Patient: CARLIE DURAN :1975 A ge:49 Y S ex:Female Address:[address] , [place], [address] Subjective: * Chief Complaints: * E MR-Chinmay * * Date:
--- OUTSIDE RECORDS SUMMARY | 2024-07-15 04:00 | XMS_ITS ---
Author Organization [facility] Address [facility] [place] [phone] Care Team Providers Care Toll Service Observer Name Role Phone Migration, Provider Unavailable Unavailable REASON FOR VISIT EMR-[facility] Medications Medication SIG (Take, Route, Frequency, Duration) Notes Start Date End Date Status FLUTICASONE PROPIONATE 50 MCG/ACTUATION NASAL SPRAY,SUSPENSION *Reorder from [employer] for eRx and Interaction Alerts* 04/26/2023 Active Flonase Allergy Relief 50 MCG/ACT Suspension Nasal 04/26/2023 Active Zithromax Z-Odin 250 MG Tablet Oral 04/26/2023 Active Sulfamethoxazole-Trime thoprim 800-160 MG Tablet Oral 04/26/2023 Active Nitrofurantoin Monohyd Macro 100 MG Capsule Oral 04/26/2023 Active metroNIDAZOLE 500 MG Tablet Oral 04/26/2023 Active Macrobid 100 MG Capsule Oral 04/26/2023 Active Fluconazole 150 MG Tablet Oral 04/26/2023 Active Ciprofloxacin HCl 500 MG Tablet Oral 04/26/2023 Active Bactrim DS 800-160 MG Tablet Oral 04/26/2023 Active Azithromycin 250 MG Tablet Oral 04/26/2023 Active Amphetamine-Dextroamph etamine 30 MG Tablet Oral 04/26/2023 Active Social History Social History Additional Details Category Social Info Options Details Migrated Social History Migrated Social History Alcohol Intake: Occasional 04/15/2023,Tobacco Years: Never smoker 04/15/2023 Encounters Encounter Location Date Provider Diagnosis [facility] [address] [facility] [place] [id number] 07/15/2024 Prov ider Migration Plan Of Treatment No Information Progress Notes * GENNY HUMPHREYSOB:1975 (49 yo F)Acc No.[id number]:07/15/2024 Patient: CARILE DURAN :1975 A ge:49 Y S ex:Female Address:[facility] [address] , [place], [address] Subjective: * Chief Complaints: * E -Chinmay * Medical History: Problems: Abnormal uterine bleeding High risk human papillomavirus detected Menometrorrhagia * 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 * Surgical History: Augmentation of bilateral breasts ([id number]) Dilation and curettage Extraction of wisdom tooth ([id number]) Hysteroscopy w/ polypectomy * Family History: M other: Family history of Anemia , Neoplasm of ovary, Notes: Malignant . * Social History: M igrated Social History: M igrated Social History: Alcohol Intake: Occasional 04/15/2023,Tobacco Years: Never smoker 04/15/2023. * Medications: T akingAmphetamine-Dextroamphetamine 30 MG Tablet Oral Azithromycin 250 MG Tablet Oral Bactrim DS 800-160 MG Tablet Oral Ciprofloxacin HCl 500 MG Tablet Oral Fluconazole 150 MG Tablet Oral Macrobid 100 MG Capsule Oral metroNIDAZOLE 500 MG Tablet Oral Nitrofurantoin Monohyd Macro 100 MG Capsule Oral Sulfamethoxazole-Trimethoprim 800-160 MG Tablet Oral Zithromax Z-Odin 250 MG Tablet Oral Flonase Allergy Relief 50 MCG/ACT Suspension Nasal FLUTICASONE PROPIONATE 50 MCG/ACTUATION NASAL SPRAY,SUSPENSION , Notes to Pharmacist: *Reorder from [employer] for eRx and Interaction Alerts*Taking Amphetamine-Dextroamphetamine 30 MG Tablet Oral Taking Azithromycin 250 MG Tablet Oral Taking Bactrim DS 800-160 MG Tablet Oral Taking Ciprofloxacin HCl 500 MG Tablet Oral Taking Fluconazole 150 MG Tablet Oral Taking Macrobid 100 MG Capsule Oral Taking metroNIDAZOLE 500 MG Tablet Oral Taking Nitrofurantoin Monohyd Macro 100 MG Capsule Oral Taking Sulfamethoxazole- Trimethoprim 800-160 MG Tablet Oral Taking Zithromax Z-Odin 250 MG Tablet Oral Taking Flonase Allergy Relief 50 MCG/ACT Suspension Nasal Taking FLUTICASONE PROPIONATE 50 MCG/ACTUATION NASAL SPRAY,SUSPENSION , Notes to Pharmacist: *Reorder from [facility] for eRx and Interaction Alerts* * * Date:
--- OUTSIDE RECORDS SUMMARY | 2025-01-02 16:20 | XMS_ITS | Clinical Summary ---
Author Organization [facility] Address [address] [place] [address] Care Team Providers Care Roll Grinder Name Role Phone Rey Stearns DO Primary Care Provider [phone] Rey Stearns DO Unavailable Allergies No known active allergies Medications dextroamphetam [...] on file Legal Sex Female 9:04 AM STEAM DRIER TENDER Gender Identity Not on file Sexual Orientation Not on file Obstetrics History Last Filed Vital Signs Vital Sign Reading Time Taken Comments Blood Pressure 132/93 12/30/2021 1:14 PM CDT Pulse 87 12/30/2021 1:14 PM CDT Temperature 37 C (98.6 F) 12/30/2021 1:14 PM CDT Respiratory Rate 16 05/06/2021 11:36 AM STEAM DRIER TENDER Oxygen Saturation 99% 05/06/2021 11:36 AM STEAM DRIER TENDER Inhaled Oxygen Concentration - - Weight 73.9 [...] Read Routine (OP Routine) 03/27/2024 9:24 AM STEAM DRIER TENDER Encounter for other screening for malignant neoplasm of breast Mastodynia from Last 3 Months or Most Recently Relevant to Health Maintenance Results * Diagnostic Mammogram Bilateral w Lee w Implants (03/27/2024 9:24 AM STEAM DRIER TENDER) Anatomical Region Laterality Modality Breast Bilateral Mammography 03/27/2024 9:56 AM STEAM DRIER TENDER Impressions 03/27/2024 2:46 PM STEAM DRIER TENDER No mammographic or sonographic evidence of malignancy [...] Alessandra Sigala M.D. Narrative 03/27/2024 2:46 PM STEAM DRIER TENDER EXAMINATION: BILATERAL DIGITAL DIAGNOSTIC MAMMOGRAM INCLUDING CAD [...] Most Recently Relevant to Health Maintenance Insurance [employer] Care Teams Roll Grinder Relationship Specialty Start Date End Date Rey Stearns DO PCP - General Internal Medicine 01/16/19 Rey Stearns DO Internal Medicine 01/16/19
--- OUTSIDE RECORDS SUMMARY | 2025-01-02 16:21 | XMS_ITS | Encounter Summary ---
Author Organization [facility] Address [address] [place] [address] Phone Care Team Providers Care Hot Patcher Name Role Phone Rey Stearns DO Primary Care Provider [phone] Rey Stearns DO Unavailable [phone] Encounter Details Date Type Department Care Team (Latest Contact Info) Description 04/08/2021 Orders Only [facility] Scanning, Provider Social History Tobacco Use Types Packs/Day Years Used Date Smoking Tobacco: Never Assessed Comments Unknown Sex and Gender Information Value Date Recorded Sex Assigned at Not on file Legal Sex Female 9:04 AM CAPSULE MACHINE OPERATOR Gender Identity Not on file Sexual Orientation [...] COVID: Suspected 05/06/2021 05/06/2021 05/06/2021 11:52 AM CAPSULE MACHINE OPERATOR COVID19 05/06/2021 05/06/2021 05/16/2021 3:05 AM CAPSULE MACHINE OPERATOR COVID: Recovered Comment:Added based on recent COVID infection. 05/16/2021 06/11/2021 09/13/2021 3:05 AM C DT documented as of this encounter Care Teams Hot Patcher Relationship Specialty Start Date End Date Rey Stearns DO PCP - General Internal Medicine 01/16/19 Rey Stearns DO Internal Medicine 01/16/19 documented as of this encounter
--- OUTSIDE RECORDS SUMMARY | 2025-01-02 16:21 | XMS_ITS | Patient Health Record ---
Author Organization [facility] Address [address] [place] [id number] Care Team Providers Care Roll Scale Worker Name Role Phone Migration, Provider Unavailable Unavailable [...] PROPIONATE 50 MCG/ACTUATION NASAL SPRAY,SUSPENSION *Reorder from [employer] for eRx and Interaction Alerts* 04/26/2023 Active [...] W/U Status Risk Notes Problem Acute sinusitis (69768471) Acute sinusitis, unspecified (J01.90) 04/15/20 23 Active confirmed Problem Urinary tract infectious disease (disorder) (64533515) Urinary tract infection, site not specified (N39.0) 04/26/19 24 Active confirmed Problem Acute vaginitis (38215781) Acute vaginitis (N76.0) 04/19/19 24 Active confirmed Problem Noninflammatory disorder of the vagina (63065692) Other specified noninflammatory disorders of vagina (N89.8) 04/15/20 23 Active confirmed Problem Unspecified symptoms and signs involving the genitourinary system (R39.9) 04/21/19 24 Active confirmed Encounters Encounter Location Date Provider Diagnosis [facility] [address] [place], [place] [id number] 07/14/2024 Prov ider Migration [facility] [address] [place], [place] [id number] 07/15/2024 Prov ider Migration Plan Of Treatment No Information Medical (General) History Surgical History Surgery Date(Month/Year) Augmentation of bilateral breasts (05161 3107) Dilation and curettage Extraction of wisdom tooth (96999819) Hysteroscopy w/ polypectomy
[2025-01-02 19:28] LABS: Add Urine Microscopic? YES; Appearance Urine Turbid (Clear); Glucose Urine UA Negative (Negative); Leukocyte Esterase Ur Negative LEU/UL (Negative); Need Manual Microscopic Reviewed; Nitrate Urine Negative (Negative); Non Pathogenic Casts 0-2; Specific Grav Ur 1.038 (1.001-1.035)
== END 2025-01-02 15:40 | disposition home or self-care (01) ==
LOC: ANHGOSHLAB 15:40
PROVIDERS: PCP Internal Medicine; Visit Provider Nurse Practitioner
DX: R30.0 Dysuria (principal)
CPT/HCPCS: 81001